=== PATIENT | female | born 1965 | race Caucasian/White ===

== ENCOUNTER 2023-11-01 19:46 | Emergency (ER) | payer OTHER ==
[2023-11-01 19:50] VITALS: RESP 18; BMI 20.9
[2023-11-01 22:06] LABS: BASO % 0.4 % (0-2.0); EOS % 8.9 % (0-4.5); HEMATOCRIT 29.9 % (32.4-45.2); HEMOGLOBIN 9.8 GM/dL (10.7-15.3); LYMPH % 18.6 % (8-40); MCH 28.4 pg (25.7-33.7); MCHC 32.9 g/dl (32.0-36.0); MEAN CELL VOLUME 86.4 fl (80-96); MEAN PLT VOLUME 9.6 fl (7.5-11.1); MONO % 8.4 % (3.8-10.2); NEUT % 63.7 % (42.8-82.8); PLATELET COUNT 221 10^3/uL (134-434); RBC 3.47 M/mm3 (3.60-5.2); RDW 14.7 % (11.6-15.6); WHITE BLOOD COUNT 5.6 K/mm3 (4.0-10.0)
[2023-11-01 22:25] LABS: POTASSIUM 3.6 mmol/L (3.5-5.1)
[2023-11-01 22:26] LABS: URINE APPEARANCE CLEAR; URINE BILIRUBIN NEGATIVE (NEGATIVE); URINE COLOR YELLOW; URINE GLUCOSE (UA) NEGATIVE (NEGATIVE); URINE KETONE NEGATIVE (NEGATIVE); URINE LEUK ESTERASE NEGATIVE (NEGATIVE); URINE NITRITE NEGATIVE (NEGATIVE); URINE PROTEIN TRACE (NEGATIVE)
[2023-11-01 22:26] LABS: CALCIUM 8.7 mg/dL (8.5-10.1)
[2023-11-01 22:27] LABS: ALBUMIN 3.1 g/dl (3.4-5.0); BLOOD UREA NITROGEN 14.8 mg/dL (7-18)
[2023-11-01 22:30] LABS: CREATININE 0.6 mg/dL (0.55-1.3)
[2023-11-01 22:32] LABS: BILIRUBIN,TOTAL 0.5 mg/dL (0.2-1); TOT PROT 7.8 g/dl (6.4-8.2)
[2023-11-01 23:28] VITALS: BP 103/52; PULSE 103; TEMP 98.2
== END 2023-11-02 01:59 | disposition home or self-care (01) ==
LOC: JER 19:46 → JERFT 19:46 → JER 11-02 01:59
DX: S30.1XXA Contusion of abdominal wall, initial encounter (principal); R50.9 Fever, unspecified; R10.9 Unspecified abdominal pain; X58.XXXA Exposure to other specified factors, initial encounter; Z20.822 Contact with and (suspected) exposure to COVID-19
CPT/HCPCS: 0241U-QW; 36415; 71045-TC-FY; 74177-TC; 80053; 81003; 83605; 85025; 87040; 87086; 99285-25; Q9967